=== PATIENT | male | born 1955 | race African-American/Black ===

== ENCOUNTER → 2016-07-21 | Outpatient (CLI) | payer OTHER ==
[~2016-07-21] MED LIST: ASPIR-LOW81 MG PO; ASPIR-LOX325 MG PO; COZAAR50 MG PO; EPI-PEN1 MG/ML MR; LISINOPRIL5 MG PO; METFORMIN; OXYCODONE HCL30 MG PO; PREDNISONE20 MG PO; TENORETIC PO
== END ==
LOC: BHSO 10:11
DX: F43.10 Post-traumatic stress disorder, unspecified (principal)
CPT/HCPCS: 90791-AI

== ENCOUNTER → 2016-11-30 | Outpatient (CLI) | payer OTHER ==
[~2016-11-30] VITALS: Ht 177.8 cm; Wt 126.6 kg
[~2016-11-30] MED LIST changes: +ASPIRIN 81M81 MG/TA2 PO; +CYMBALTA 30MG30 MG PO; +MOBIC15 MG PO; +ZOCOR 20MG20 MG PO
[2016-11-30 09:06] VITALS: BP 152/82; PULSE 114
[2016-11-30 09:54] VITALS: BP 128/65; PULSE 120
[2016-11-30 09:56] VITALS: BP 119/59; PULSE 115
[2016-11-30 09:57] VITALS: BP 122/64; PULSE 116
== END ==
LOC: COL.CARD 08:30
DX: R06.02 Shortness of breath (principal); I42.9 Cardiomyopathy, unspecified; E66.01 Morbid (severe) obesity due to excess calories; F41.0 Panic disorder [episodic paroxysmal anxiety]; E11.22 Type 2 diabetes mellitus with diabetic chronic kidney disease; G47.39 Other sleep apnea; E78.5 Hyperlipidemia, unspecified; F40.01 Agoraphobia with panic disorder; I12.9 Hypertensive chronic kidney disease with stage 1 through stage 4 chronic kidney disease, or unspecified chronic kidney disease; N18.9 Chronic kidney disease, unspecified; D64.9 Anemia, unspecified
CPT/HCPCS: A9502; J2785

== ENCOUNTER → 2016-12-07 | Outpatient (CLI) | payer OTHER | LOC: COL.PUL 09:40 | DX: R06.02 Shortness of breath (principal) ==

== ENCOUNTER → 2017-01-12 | Outpatient (CLI) | payer OTHER | LOC: BHSO 09:59 | DX: F43.10 Post-traumatic stress disorder, unspecified (principal) ==

== ENCOUNTER 2017-03-13 16:39 | Inpatient (IN) | payer OTHER ==
[2017-03-13] VITALS (66 sets, daily range): BP systolic 119–148; BP diastolic 66–83; PULSE 101–105; TEMP 97.8–99.2; O2SAT 91–100
[~2017-03-13] VITALS: Ht 177.8 cm; Wt 115.8 kg
[2017-03-13 17:41] LABS: ALANINE AMINOTRANSFERASE 26 U/L (21-72); ALBUMIN 4.5 gm/dL (3.5-5.0); ALKALINE PHOSPHATASE 120 U/L (50-136); ANION GAP 23 mmol/L (7-16); AST,SGOT 70 U/L (15-37); BILIRUBIN,TOTAL 1.6 mg/dL (0.0-1.0); BLOOD UREA NITROGEN 11 mg/dL (9-20); CALCIUM 9.3 mg/dL (8.4-10.2); CARBON DIOXIDE 17 mmol/L (22-30); CHLORIDE 98 mmol/L (98-107); CREATININE, serum 0.78 mg/dL (0.66-1.25); GLUCOSE 136 mg/dL (74-106); LIPASE 431 U/L (23-300); POTASSIUM 3.8 mmol/L (3.4-5.0); SODIUM 138 mmol/L (137-145); TOTAL PROTEIN 7.6 gm/dL (6.4-8.2)
[2017-03-13 17:55] LABS: TROPONIN-I < 0.012 ng/mL (0.000-0.034)
[2017-03-13 17:57] LABS: BASO # 0.1 (0.0-0.2); BASO % 0.4 % (0.0-2.0); EOS # 0.2 (0.0-0.7); EOS % 1.4 % (0-4.0); GRAN % 68.5 % (42.2-75.2); INR 1.3 (0.8-3.0); LYMPH # 2.2 (1.2-3.4); LYMPH % 18.6 % (20.0-51.0); MEAN CELL VOLUME 68 fl (80.0-100.0); MEAN CORPUSCULAR HGB CONC 32 g/dl (33.0-37.0); MONO # 1.1 (0.1-0.6); MONO % 9.7 % (1.7-9.3); PLATELET COUNT 248 K/mm3 (130-400); PROTHROMBIN TIME 15.3 SECONDS (9.7-12.8); REDCELL DISTRIBUTION WIDTH-CV 28.9 % (11.5-14.5)
[2017-03-13 18:00] LABS: PARTIAL THROMBOPLASTIN TIME 29.8 SECONDS (26.0-37.0)
[2017-03-13 18:17] LABS: HEMATOCRIT 18.9 % (42.0-52.0); MEAN CORPUSCULAR HEMOGLOBIN 22 pg (27.0-31.0)
[2017-03-13 18:19] LABS: RED BLOOD COUNT 2.79 M/mm3 (4.20-5.60)
[2017-03-13 23:21] LABS: COLLECTION METHOD CLEAN CATCH
[2017-03-13 23:31] LABS: MUCOUS Present /lpf; PH 5 (5-8); SQUAMOUS EPITHELIAL 0-2 /hpf; URINE APPEARANCE Hazy; URINE BACTERIA Rare /hpf; URINE BILIRUBIN Positive (NEGATIVE); URINE BLOOD Negative (NEGATIVE); URINE COLOR Amber; URINE GLUCOSE Negative (NEGATIVE); URINE KETONE Trace (NEGATIVE); URINE LEUKOCYTE ESTERASE Negative (NEGATIVE); URINE NITRATE Negative (NEGATIVE); URINE PROTEIN(semi-quant) 2+ (NEGATIVE); URINE RBC 0-2 /hpf; URINE UROBILINOGEN >=4.0 mg/dL (NEGATIVE)
[2017-03-14] VITALS (523 sets, daily range): BP systolic 126–143; BP diastolic 72–87; PULSE 91–102; TEMP 96.7–99.5; O2SAT 73–100
[2017-03-14 03:05] LABS: HEMATOCRIT 18.5 % (42.0-52.0); HEMOGLOBIN 6.2 g/dl (13.5-18.0)
[2017-03-14 08:41] LABS: MEAN CELL VOLUME 72 fl (80.0-100.0); MEAN CORPUSCULAR HGB CONC 33 g/dl (33.0-37.0); PLATELET COUNT 249 K/mm3 (130-400); RED BLOOD COUNT 3.03 M/mm3 (4.20-5.60); REDCELL DISTRIBUTION WIDTH-CV 31.3 % (11.5-14.5)
[2017-03-14 08:43] LABS: HEMATOCRIT 21.8 % (42.0-52.0); HEMOGLOBIN 7.1 g/dl (13.5-18.0); MEAN CORPUSCULAR HEMOGLOBIN 23 pg (27.0-31.0)
[2017-03-14 08:50] LABS: CHOLESTEROL 120 mg/dL (120-200); CHOLESTEROL RISK RATIO 4.2; HDL CHOLESTEROL 28 mg/dL; LDL CHOLESTEROL 74 mg/dL; TRIGLYCERIDE 91 mg/dL
[2017-03-14 08:51] LABS: CALCIUM 8.9 mg/dL (8.4-10.2); CREATININE, serum 0.72 mg/dL (0.66-1.25); POTASSIUM 3.9 mmol/L (3.4-5.0)
[2017-03-14 09:04] LABS: TROPONIN-I < 0.012 ng/mL (0.000-0.034)
[2017-03-14 09:21] LABS: BAND 1 % (0-10); LYMPHOCYTE 16 % (20.0-51.0); NEUTROPHILS 81 % (42.0-75.2)
[2017-03-14 09:22] LABS: PLATELET ESTIMATE NORMAL (NORMAL)
[2017-03-14 09:23] LABS: ANISOCYTOSIS 3+; POIKILOCYTOSIS 1+
[2017-03-14 09:24] LABS: HYPOCHROMIA 2+
[2017-03-14 09:25] LABS: MICROCYTOSIS 1+
[2017-03-14 12:27] LABS: ALBUMIN 3.6 gm/dL (3.5-5.0); TOTAL PROTEIN 6.5 gm/dL (6.4-8.2)
[2017-03-14 12:36] LABS: BILIRUBIN UNCONJUGATED 1.2 mg/dL (0.0-1.1); BILIRUBIN,DIRECT 0.8 mg/dL (0.0-0.4)
[2017-03-14 14:36] LABS: HEMATOCRIT 23.4 % (42.0-52.0); HEMOGLOBIN 7.6 g/dl (13.5-18.0)
[2017-03-14 20:40] LABS: HEMATOCRIT 21.8 % (42.0-52.0); HEMOGLOBIN 7.2 g/dl (13.5-18.0)
[2017-03-15] VITALS (119 sets, daily range): BP systolic 118–152; BP diastolic 64–80; PULSE 89–96; TEMP 97–98.9; O2SAT 90–100
[2017-03-15 02:12] LABS: HEMATOCRIT 22.5 % (42.0-52.0); HEMOGLOBIN 7.4 g/dl (13.5-18.0)
[2017-03-15 05:35] LABS: MEAN CELL VOLUME 73 fl (80.0-100.0); MEAN CORPUSCULAR HGB CONC 33 g/dl (33.0-37.0); PLATELET COUNT 207 K/mm3 (130-400); RED BLOOD COUNT 2.87 M/mm3 (4.20-5.60); REDCELL DISTRIBUTION WIDTH-CV 30.6 % (11.5-14.5)
[2017-03-15 05:51] LABS: ALBUMIN 3.4 gm/dL (3.5-5.0); BILIRUBIN,TOTAL 1.6 mg/dL (0.0-1.0); CALCIUM 8.5 mg/dL (8.4-10.2); CREATININE, serum 0.7 mg/dL (0.66-1.25); HEMATOCRIT 20.9 % (42.0-52.0); INR 1.3 (0.8-3.0); MAGNESIUM 1.1 mg/dL (1.6-2.3); MEAN CORPUSCULAR HEMOGLOBIN 24 pg (27.0-31.0); POTASSIUM 3.5 mmol/L (3.4-5.0); PROTHROMBIN TIME 15.5 SECONDS (9.7-12.8); TOTAL PROTEIN 6.3 gm/dL (6.4-8.2)
[2017-03-15 05:52] LABS: HEMOGLOBIN 6.9 g/dl (13.5-18.0)
[2017-03-15 06:24] LABS: ANISOCYTOSIS 4+; BAND 3 % (0-10); EOSINOPHIL 3 % (0-4); HYPOCHROMIA 3+; LYMPHOCYTE 14 % (20.0-51.0); NEUTROPHILS 71 % (42.0-75.2); PLATELET ESTIMATE NORMAL (NORMAL)
[2017-03-15 06:25] LABS: TARGET CELLS 1+; TEAR DROP CELLS 1+
[2017-03-15 10:08] LABS: HEMATOCRIT 20.4 % (42.0-52.0); HEMOGLOBIN 6.8 g/dl (13.5-18.0)
[2017-03-15 16:27] LABS: HEMATOCRIT 21.6 % (42.0-52.0)
[2017-03-16] VITALS (8 sets, daily range): BP systolic 130–152; BP diastolic 69–89; PULSE 84–95; TEMP 98–98.6
[2017-03-16 08:08] LABS: CALCIUM 8.9 mg/dL (8.4-10.2); CREATININE, serum 0.64 mg/dL (0.66-1.25); MAGNESIUM 1.8 mg/dL (1.6-2.3)
[2017-03-16 08:22] LABS: BASO % 0.3 % (0.0-2.0); EOS # 0.1 (0.0-0.7); EOS % 0.5 % (0-4.0); GRAN # 7.9 (1.4-6.5); GRAN % 75.9 % (42.2-75.2); LYMPH # 1.4 (1.2-3.4); LYMPH % 13.8 % (20.0-51.0); MEAN CELL VOLUME 73 fl (80.0-100.0); MEAN CORPUSCULAR HGB CONC 33 g/dl (33.0-37.0); MONO # 0.9 (0.1-0.6); MONO % 8.8 % (1.7-9.3); PLATELET COUNT 265 K/mm3 (130-400); RED BLOOD COUNT 2.84 M/mm3 (4.20-5.60); REDCELL DISTRIBUTION WIDTH-CV 31.5 % (11.5-14.5)
[2017-03-16 08:23] LABS: HEMATOCRIT 20.8 % (42.0-52.0); HEMOGLOBIN 6.8 g/dl (13.5-18.0); MEAN CORPUSCULAR HEMOGLOBIN 24 pg (27.0-31.0)
[2017-03-17 03:17] VITALS: BP 145/71; PULSE 85; TEMP 97.8
[2017-03-17 06:20] LABS: BASO % 0.3 % (0.0-2.0); EOS % 0.4 % (0-4.0); GRAN # 8.2 (1.4-6.5); GRAN % 72.7 % (42.2-75.2); LYMPH # 1.9 (1.2-3.4); LYMPH % 16.8 % (20.0-51.0); MEAN CELL VOLUME 75 fl (80.0-100.0); MEAN CORPUSCULAR HGB CONC 32 g/dl (33.0-37.0); PLATELET COUNT 302 K/mm3 (130-400); RED BLOOD COUNT 3.23 M/mm3 (4.20-5.60); REDCELL DISTRIBUTION WIDTH-CV 30.2 % (11.5-14.5)
[2017-03-17 06:23] LABS: HEMATOCRIT 24.2 % (42.0-52.0); HEMOGLOBIN 7.8 g/dl (13.5-18.0); MEAN CORPUSCULAR HEMOGLOBIN 24 pg (27.0-31.0)
[2017-03-17 06:35] LABS: CALCIUM 9.4 mg/dL (8.4-10.2); CREATININE, serum 0.66 mg/dL (0.66-1.25)
[2017-03-17] MEDS ORDERED: FERROUS SU325 MG/TAB PO (08:09)
[2017-03-17] MEDS ORDERED: PROTONIX 40MG T40 MG PO (08:10)
[2017-03-17 08:28] VITALS: BP 146/79; PULSE 90; TEMP 98.1
[2017-03-17 12:37] VITALS: BP 163/87; PULSE 95; TEMP 98.3
[2017-03-17 16:47] VITALS: BP 144/84; PULSE 93; TEMP 98.2
[2017-03-17 20:30] VITALS: BP 140/85; PULSE 89; TEMP 98
[2017-03-18] VITALS (12 sets, daily range): BP systolic 126–169; BP diastolic 68–88; PULSE 82–104; TEMP 97.7–98
[2017-03-18 06:39] LABS: BASO % 0.3 % (0.0-2.0); EOS # 0.1 (0.0-0.7); EOS % 0.8 % (0-4.0); GRAN # 7.1 (1.4-6.5); GRAN % 71.6 % (42.2-75.2); LYMPH # 1.7 (1.2-3.4); LYMPH % 17.5 % (20.0-51.0); MEAN CELL VOLUME 74 fl (80.0-100.0); MEAN CORPUSCULAR HGB CONC 33 g/dl (33.0-37.0); MONO # 0.9 (0.1-0.6); MONO % 8.9 % (1.7-9.3); PLATELET COUNT 292 K/mm3 (130-400); RED BLOOD COUNT 3.17 M/mm3 (4.20-5.60); REDCELL DISTRIBUTION WIDTH-CV 30.5 % (11.5-14.5)
[2017-03-18 06:45] LABS: CALCIUM 9.5 mg/dL (8.4-10.2); CREATININE, serum 0.59 mg/dL (0.66-1.25); POTASSIUM 3.8 mmol/L (3.4-5.0)
[2017-03-18 07:01] LABS: HEMATOCRIT 23.5 % (42.0-52.0); HEMOGLOBIN 7.7 g/dl (13.5-18.0); MEAN CORPUSCULAR HEMOGLOBIN 24 pg (27.0-31.0)
[2017-03-18] MEDS ORDERED: NORCO 325 MG-51 TAB PO (08:11)
[2017-03-19 00:01] VITALS: BP 150/71; PULSE 79; TEMP 98.4
[2017-03-19 03:21] VITALS: BP 128/50; PULSE 85; TEMP 98.2
[2017-03-19 07:53] LABS: BASO % 0.3 % (0.0-2.0); EOS # 0.1 (0.0-0.7); EOS % 0.8 % (0-4.0); GRAN # 8.4 (1.4-6.5); GRAN % 73.5 % (42.2-75.2); LYMPH # 1.7 (1.2-3.4); LYMPH % 14.9 % (20.0-51.0); MEAN CELL VOLUME 75 fl (80.0-100.0); MEAN CORPUSCULAR HGB CONC 33 g/dl (33.0-37.0); MONO # 1.1 (0.1-0.6); MONO % 9.6 % (1.7-9.3); PLATELET COUNT 304 K/mm3 (130-400)
[2017-03-19 08:02] LABS: CALCIUM 9.6 mg/dL (8.4-10.2); CREATININE, serum 0.59 mg/dL (0.66-1.25); POTASSIUM 3.6 mmol/L (3.4-5.0)
[2017-03-19 08:04] LABS: HEMATOCRIT 26.2 % (42.0-52.0); HEMOGLOBIN 8.7 g/dl (13.5-18.0); MEAN CORPUSCULAR HEMOGLOBIN 25 pg (27.0-31.0)
[2017-03-19 08:23] VITALS: BP 161/91; PULSE 84; TEMP 98.6
[2017-03-19 12:39] VITALS: BP 154/68; PULSE 92; TEMP 97.6
[2017-03-19 16:06] LABS: COLLECTION METHOD CLEAN CATCH
[2017-03-19 16:13] VITALS: BP 136/63; PULSE 79; TEMP 98.2
[2017-03-19 16:15] LABS: MUCOUS Present /lpf; PH 5 (5-8); SQUAMOUS EPITHELIAL None Seen /hpf; URINE APPEARANCE Turbid; URINE BACTERIA None Seen /hpf; URINE BILIRUBIN Negative (NEGATIVE); URINE BLOOD 1+ (NEGATIVE); URINE COLOR Amber; URINE GLUCOSE Negative (NEGATIVE); URINE KETONE Negative (NEGATIVE); URINE LEUKOCYTE ESTERASE Negative (NEGATIVE); URINE NITRATE Negative (NEGATIVE); URINE PROTEIN(semi-quant) 2+ (NEGATIVE); URINE UROBILINOGEN >=4.0 mg/dL (NEGATIVE)
[2017-03-19 20:14] VITALS: BP 158/79; PULSE 70; TEMP 97.9
[2017-03-20] VITALS (9 sets, daily range): BP systolic 136–180; BP diastolic 71–94; PULSE 70–115; TEMP 98.2–98.7
[2017-03-20 09:02] LABS: BASO % 0.3 % (0.0-2.0); EOS # 0.1 (0.0-0.7); EOS % 1.2 % (0-4.0); GRAN # 7.3 (1.4-6.5); GRAN % 71.3 % (42.2-75.2); LYMPH # 1.8 (1.2-3.4); LYMPH % 17.3 % (20.0-51.0); MEAN CELL VOLUME 75 fl (80.0-100.0); MEAN CORPUSCULAR HGB CONC 33 g/dl (33.0-37.0); MONO # 0.9 (0.1-0.6); MONO % 9.2 % (1.7-9.3); PLATELET COUNT 309 K/mm3 (130-400); RED BLOOD COUNT 3.68 M/mm3 (4.20-5.60); REDCELL DISTRIBUTION WIDTH-CV 28.6 % (11.5-14.5)
[2017-03-20 09:04] LABS: HEMATOCRIT 27.6 % (42.0-52.0); HEMOGLOBIN 9.2 g/dl (13.5-18.0); MEAN CORPUSCULAR HEMOGLOBIN 25 pg (27.0-31.0)
[2017-03-20 09:11] LABS: CALCIUM 9.7 mg/dL (8.4-10.2); CREATININE, serum 0.57 mg/dL (0.66-1.25); POTASSIUM 3.9 mmol/L (3.4-5.0)
[2017-03-21 00:34] VITALS: BP 182/90; PULSE 78; TEMP 97.9
[2017-03-21 04:07] VITALS: BP 156/84; PULSE 83; TEMP 97.7
[2017-03-21 07:01] LABS: BASO % 0.3 % (0.0-2.0); EOS # 0.1 (0.0-0.7); GRAN # 6.5 (1.4-6.5); LYMPH # 1.6 (1.2-3.4); LYMPH % 16.8 % (20.0-51.0); MEAN CELL VOLUME 75 fl (80.0-100.0); MEAN CORPUSCULAR HGB CONC 33 g/dl (33.0-37.0); MONO % 10.5 % (1.7-9.3); PLATELET COUNT 280 K/mm3 (130-400); RED BLOOD COUNT 3.62 M/mm3 (4.20-5.60)
[2017-03-21 07:15] LABS: CALCIUM 9.5 mg/dL (8.4-10.2); CREATININE, serum 0.55 mg/dL (0.66-1.25); POTASSIUM 3.8 mmol/L (3.4-5.0)
[2017-03-21 07:41] LABS: HEMATOCRIT 27.3 % (42.0-52.0); HEMOGLOBIN 8.9 g/dl (13.5-18.0); MEAN CORPUSCULAR HEMOGLOBIN 25 pg (27.0-31.0); REDCELL DISTRIBUTION WIDTH-CV 28.7 % (11.5-14.5)
[2017-03-21 08:05] VITALS: BP 171/88; PULSE 83; TEMP 98.5
[2017-03-21 11:57] VITALS: BP 144/57; PULSE 79; TEMP 98.4
[2017-03-21 15:56] VITALS: BP 148/73; PULSE 95; TEMP 98
[2017-03-21 20:25] VITALS: BP 165/77; PULSE 81; TEMP 97.8
[2017-03-22 00:20] VITALS: BP 161/100; PULSE 80; TEMP 98.4
[2017-03-22 04:32] VITALS: BP 168/84; PULSE 77; TEMP 97.9
[2017-03-22 06:49] LABS: BASO % 0.3 % (0.0-2.0); EOS # 0.1 (0.0-0.7); EOS % 1.2 % (0-4.0); GRAN # 6.3 (1.4-6.5); GRAN % 71.3 % (42.2-75.2); LYMPH # 1.5 (1.2-3.4); LYMPH % 17.2 % (20.0-51.0); MEAN CELL VOLUME 75 fl (80.0-100.0); MEAN CORPUSCULAR HGB CONC 33 g/dl (33.0-37.0); MONO # 0.9 (0.1-0.6); MONO % 9.7 % (1.7-9.3); PLATELET COUNT 306 K/mm3 (130-400); RED BLOOD COUNT 3.66 M/mm3 (4.20-5.60); REDCELL DISTRIBUTION WIDTH-CV 28.8 % (11.5-14.5)
[2017-03-22 06:52] LABS: HEMATOCRIT 27.3 % (42.0-52.0); HEMOGLOBIN 8.9 g/dl (13.5-18.0); MEAN CORPUSCULAR HEMOGLOBIN 24 pg (27.0-31.0)
[2017-03-22 07:16] LABS: CALCIUM 9.6 mg/dL (8.4-10.2); CREATININE, serum 0.55 mg/dL (0.66-1.25); POTASSIUM 3.9 mmol/L (3.4-5.0)
[2017-03-22] MEDS ORDERED: MIRALAX PA17 GM/Dose PO (07:50)
[2017-03-22] MEDS ORDERED: SENOKOT S 50 MG1 TAB PO (07:50)
[2017-03-22] MEDS ORDERED: LIDODERM 5% PATC1 EA TP (07:51)
[2017-03-22] MEDS ORDERED: COZAAR100 MG PO (07:56)
[2017-03-22 08:22] VITALS: BP 160/85; PULSE 85; TEMP 98.4
[2017-03-22 12:47] VITALS: BP 165/91; PULSE 87; TEMP 98.2
[2017-03-22 15:58] VITALS: BP 161/92; PULSE 87; TEMP 98.1
[2017-03-22 21:48] VITALS: BP 153/91; PULSE 89; TEMP 98.9
[2017-03-23 01:18] VITALS: BP 173/88; PULSE 84; TEMP 98.5
[2017-03-23 04:30] VITALS: BP 157/87; PULSE 85; TEMP 98.6
[2017-03-23 06:58] LABS: BASO % 0.4 % (0.0-2.0); EOS # 0.1 (0.0-0.7); EOS % 1.3 % (0-4.0); GRAN # 6.3 (1.4-6.5); GRAN % 70.1 % (42.2-75.2); LYMPH # 1.7 (1.2-3.4); LYMPH % 18.7 % (20.0-51.0); MEAN CELL VOLUME 74 fl (80.0-100.0); MEAN CORPUSCULAR HGB CONC 33 g/dl (33.0-37.0); MONO # 0.8 (0.1-0.6); MONO % 9.2 % (1.7-9.3); PLATELET COUNT 285 K/mm3 (130-400); RED BLOOD COUNT 3.62 M/mm3 (4.20-5.60); REDCELL DISTRIBUTION WIDTH-CV 28.3 % (11.5-14.5)
[2017-03-23 07:06] LABS: HEMATOCRIT 26.8 % (42.0-52.0); HEMOGLOBIN 8.8 g/dl (13.5-18.0); MEAN CORPUSCULAR HEMOGLOBIN 24 pg (27.0-31.0)
[2017-03-23 07:14] LABS: CALCIUM 9.6 mg/dL (8.4-10.2); CREATININE, serum 0.56 mg/dL (0.66-1.25); POTASSIUM 3.9 mmol/L (3.4-5.0)
[2017-03-23 08:02] VITALS: BP 161/76; PULSE 89; TEMP 98.1
[2017-03-23 11:58] VITALS: BP 143/86; PULSE 99; TEMP 98.2
[2017-03-23 16:43] VITALS: BP 182/97; PULSE 80; TEMP 98.7
[2017-03-23 20:43] VITALS: BP 187/101; PULSE 82; TEMP 98
[2017-03-24 00:27] VITALS: BP 186/93; PULSE 78; TEMP 98
[2017-03-24 05:00] VITALS: BP 184/98; PULSE 107; TEMP 98
[2017-03-24 06:51] LABS: BASO % 0.4 % (0.0-2.0); EOS # 0.1 (0.0-0.7); EOS % 1.2 % (0-4.0); GRAN # 6.6 (1.4-6.5); GRAN % 72.5 % (42.2-75.2); LYMPH # 1.5 (1.2-3.4); LYMPH % 16.8 % (20.0-51.0); MEAN CELL VOLUME 74 fl (80.0-100.0); MEAN CORPUSCULAR HGB CONC 33 g/dl (33.0-37.0); MONO # 0.8 (0.1-0.6); MONO % 8.7 % (1.7-9.3); PLATELET COUNT 287 K/mm3 (130-400); RED BLOOD COUNT 3.81 M/mm3 (4.20-5.60); REDCELL DISTRIBUTION WIDTH-CV 27.6 % (11.5-14.5)
[2017-03-24 06:58] LABS: CALCIUM 9.7 mg/dL (8.4-10.2); CREATININE, serum 0.5 mg/dL (0.66-1.25); POTASSIUM 3.9 mmol/L (3.4-5.0)
[2017-03-24 07:01] LABS: HEMOGLOBIN 9.3 g/dl (13.5-18.0); MEAN CORPUSCULAR HEMOGLOBIN 24 pg (27.0-31.0)
[2017-03-24 08:13] VITALS: BP 163/85; PULSE 84; TEMP 98.2
[2017-03-24 11:35] VITALS: BP 145/69; PULSE 87; TEMP 98
[2017-03-24 15:58] VITALS: BP 140/73; PULSE 87; TEMP 98.7
[2017-03-24 20:18] VITALS: BP 130/72; PULSE 83; TEMP 97.6
[2017-03-25] VITALS (7 sets, daily range): BP systolic 143–177; BP diastolic 79–88; PULSE 73–80; TEMP 97.8–98.7
[2017-03-25 07:29] LABS: BASO # 0.1 (0.0-0.2); BASO % 0.6 % (0.0-2.0); EOS # 0.1 (0.0-0.7); EOS % 1.6 % (0-4.0); GRAN # 5.7 (1.4-6.5); GRAN % 65.4 % (42.2-75.2); LYMPH # 1.9 (1.2-3.4); LYMPH % 22.4 % (20.0-51.0); MEAN CELL VOLUME 74 fl (80.0-100.0); MEAN CORPUSCULAR HGB CONC 33 g/dl (33.0-37.0); MONO # 0.8 (0.1-0.6); MONO % 9.5 % (1.7-9.3); PLATELET COUNT 260 K/mm3 (130-400); RED BLOOD COUNT 3.78 M/mm3 (4.20-5.60); REDCELL DISTRIBUTION WIDTH-CV 27.5 % (11.5-14.5)
[2017-03-25 07:31] LABS: HEMATOCRIT 27.8 % (42.0-52.0); HEMOGLOBIN 9.1 g/dl (13.5-18.0); MEAN CORPUSCULAR HEMOGLOBIN 24 pg (27.0-31.0)
[2017-03-25 07:46] LABS: CALCIUM 9.5 mg/dL (8.4-10.2); CREATININE, serum 0.55 mg/dL (0.66-1.25); POTASSIUM 3.8 mmol/L (3.4-5.0)
[2017-03-26 04:46] VITALS: BP 100/63; PULSE 50; TEMP 98.1
[2017-03-26 06:54] LABS: BASO # 0.1 (0.0-0.2); BASO % 0.6 % (0.0-2.0); EOS # 0.1 (0.0-0.7); EOS % 1.6 % (0-4.0); GRAN # 5.8 (1.4-6.5); GRAN % 66.2 % (42.2-75.2); LYMPH # 1.9 (1.2-3.4); LYMPH % 21.7 % (20.0-51.0); MEAN CELL VOLUME 73 fl (80.0-100.0); MEAN CORPUSCULAR HGB CONC 34 g/dl (33.0-37.0); MONO # 0.8 (0.1-0.6); MONO % 9.6 % (1.7-9.3); PLATELET COUNT 265 K/mm3 (130-400); RED BLOOD COUNT 3.88 M/mm3 (4.20-5.60); REDCELL DISTRIBUTION WIDTH-CV 27.1 % (11.5-14.5)
[2017-03-26 06:56] LABS: HEMATOCRIT 28.3 % (42.0-52.0); HEMOGLOBIN 9.5 g/dl (13.5-18.0); MEAN CORPUSCULAR HEMOGLOBIN 24 pg (27.0-31.0)
[2017-03-26 08:08] VITALS: BP 175/94; PULSE 74; TEMP 98.6
[2017-03-26 11:34] VITALS: BP 155/80; PULSE 77; TEMP 97.9
[2017-03-26 15:31] VITALS: BP 151/80; PULSE 85; TEMP 97.5
[2017-03-26 20:41] VITALS: BP 138/88; PULSE 73; TEMP 97.9
[2017-03-26 23:58] VITALS: BP 158/85; PULSE 70; TEMP 98.3
[2017-03-27] VITALS (7 sets, daily range): BP systolic 127–171; BP diastolic 66–91; PULSE 72–85; TEMP 97.5–98.4
[2017-03-27] MEDS ORDERED: COREG 6.256.25 MG/TA PO (20:45)
[2017-03-28 01:08] VITALS: BP 155/86; PULSE 74; TEMP 97.7
[2017-03-28 04:40] VITALS: BP 164/87; PULSE 78; TEMP 97.3
[2017-03-28 06:43] LABS: BASO # 0.1 (0.0-0.2); BASO % 0.6 % (0.0-2.0); EOS # 0.1 (0.0-0.7); EOS % 1.4 % (0-4.0); GRAN # 7.1 (1.4-6.5); GRAN % 68.8 % (42.2-75.2); LYMPH % 19.1 % (20.0-51.0); MEAN CELL VOLUME 73 fl (80.0-100.0); MEAN CORPUSCULAR HGB CONC 33 g/dl (33.0-37.0); MONO % 9.6 % (1.7-9.3); PLATELET COUNT 293 K/mm3 (130-400); RED BLOOD COUNT 4.08 M/mm3 (4.20-5.60); REDCELL DISTRIBUTION WIDTH-CV 26.5 % (11.5-14.5)
[2017-03-28 06:46] LABS: HEMATOCRIT 29.9 % (42.0-52.0); HEMOGLOBIN 9.9 g/dl (13.5-18.0); MEAN CORPUSCULAR HEMOGLOBIN 24 pg (27.0-31.0)
[2017-03-28 06:52] LABS: CALCIUM 9.7 mg/dL (8.4-10.2); CREATININE, serum 0.55 mg/dL (0.66-1.25); POTASSIUM 3.8 mmol/L (3.4-5.0)
[2017-03-28 08:06] VITALS: BP 139/81; PULSE 86; TEMP 98.4
[2017-03-28 09:25] VITALS: BP 139/81; PULSE 86; TEMP 98.4
[2017-03-28 12:30] VITALS: BP 154/96; PULSE 82; TEMP 98
== END 2017-03-28 14:00 | DRG 392 ==
LOC: COL.ER 16:39 → ICU 19:30 → MEDICAL 03-15 12:09
PROVIDERS: Emergency Medicine; Family Medicine; Internal Medicine; Internal Medicine Gastroenterology; Nurse Practitioner; Nurse Practitioner Family; Physician Assistant
PROC: 0DB98ZX Excision of Duodenum, Via Natural or Artificial Opening Endoscopic, Diagnostic (ICD-10-PCS; principal; 2017-03-15 07:30)
PROC: 0DJD8ZZ Inspection of Lower Intestinal Tract, Via Natural or Artificial Opening Endoscopic (ICD-10-PCS; 2017-03-15 07:30)
DX: K21.0 Gastro-esophageal reflux disease with esophagitis (principal); K92.2 Gastrointestinal hemorrhage, unspecified; D62 Acute posthemorrhagic anemia; K22.8 Other specified diseases of esophagus; I10 Essential (primary) hypertension; E78.5 Hyperlipidemia, unspecified; E11.9 Type 2 diabetes mellitus without complications; M10.9 Gout, unspecified; R55 Syncope and collapse; G47.33 Obstructive sleep apnea (adult) (pediatric); K64.0 First degree hemorrhoids; D58.2 Other hemoglobinopathies; F10.10 Alcohol abuse, uncomplicated; K57.30 Diverticulosis of large intestine without perforation or abscess without bleeding; M54.5 Low back pain; Z80.0 Family history of malignant neoplasm of digestive organs; Z91.81 History of falling
CPT/HCPCS: 99223-AI; 99231-AI; 99232-AI; 99233-AI; 99239; C9113; J2250; J3010; J3475; J7030; J7512; P9016

== ENCOUNTER → 2017-09-05 | Outpatient (CLI) | payer OTHER ==
[~2017-09-05] MED LIST changes: +COREG 6.256.25 MG/TA PO; +COZAAR100 MG PO; +FERROUS SU325 MG/TAB PO; +LIDODERM 5% PATC1 EA TP; +MIRALAX PA17 GM/Dose PO; +NORCO 325 MG-51 TAB PO; +PROTONIX 40MG T40 MG PO; +SENOKOT S 50 MG1 TAB PO
== END ==
LOC: BHSO 13:12
DX: F43.10 Post-traumatic stress disorder, unspecified (principal)
CPT/HCPCS: G0463

== ENCOUNTER → 2017-12-22 | Outpatient (CLI) | payer OTHER | LOC: BHSO 11:30 | DX: F43.10 Post-traumatic stress disorder, unspecified (principal) | CPT/HCPCS: G0463 ==

== ENCOUNTER 2018-01-19 16:44 | Inpatient (IN) | payer OTHER ==
[~2018-01-19] VITALS: Ht 177.8 cm; Wt 116.8 kg
[2018-01-19] VITALS (7 sets, daily range): BP systolic 109–136; BP diastolic 54–72; PULSE 96–104; TEMP 98.6–99.2
[2018-01-19] MEDS ORDERED: ASPIRIN 81M81 MG/TA2 PO (17:10)
[2018-01-19] MEDS ORDERED: 00186-0372-20 IH (17:10)
[2018-01-19] MEDS ORDERED: FOLIC ACID 11 MG/TA1 PO (17:11)
[2018-01-19] MEDS ORDERED: D3-5050000 IU PO (17:11)
[2018-01-19] MEDS ORDERED: FERROUSAL325 MG PO (17:11)
[2018-01-19] MEDS ORDERED: NEURONTIN300 MG/CAP PO (17:12)
[2018-01-19 17:13] LABS: BASO % 0.3 % (0.0-2.0); EOS # 0.3 (0.0-0.7); EOS % 1.9 % (0-4.0); GRAN # 10.8 (1.4-6.5); GRAN % 71.4 % (42.2-75.2); LYMPH # 2.4 (1.2-3.4); LYMPH % 15.7 % (20.0-51.0); MEAN CELL VOLUME 74 fl (80.0-100.0); MEAN CORPUSCULAR HGB CONC 35 g/dl (33.0-37.0); MEAN PLATELET VOLUME 9.4 fl (7.4-10.4); MONO # 1.4 (0.1-0.6); MONO % 9.5 % (1.7-9.3); PLATELET COUNT 230 K/mm3 (130-400); RED BLOOD COUNT 2.14 M/mm3 (4.20-5.60)
[2018-01-19] MEDS ORDERED: ATARAX50 MG PO (17:13)
[2018-01-19] MEDS ORDERED: HCTZ 25MG TAB25 MG PO (17:13)
[2018-01-19 17:15] LABS: HEMATOCRIT 15.8 % (42.0-52.0); HEMOGLOBIN 5.5 g/dl (13.5-18.0); MEAN CORPUSCULAR HEMOGLOBIN 26 pg (27.0-31.0)
[2018-01-19 17:20] LABS: INR 1.3 (0.8-3.0); PROTHROMBIN TIME 14.5 SECONDS (9.7-12.8)
[2018-01-19 17:23] LABS: PARTIAL THROMBOPLASTIN TIME 28.6 SECONDS (26.0-37.0)
[2018-01-19 17:28] LABS: ALANINE AMINOTRANSFERASE 27 U/L (21-72); ALKALINE PHOSPHATASE 139 U/L (50-136); ANION GAP 16 mmol/L (7-16); AST,SGOT 70 U/L (15-37); BLOOD UREA NITROGEN 25 mg/dL (9-20); CALCIUM 9.2 mg/dL (8.4-10.2); CARBON DIOXIDE 22 mmol/L (22-30); CHLORIDE 101 mmol/L (98-107); GLUCOSE 126 mg/dL (74-106); POTASSIUM 3.5 mmol/L (3.4-5.0); SODIUM 139 mmol/L (137-145); TOTAL PROTEIN 7.2 gm/dL (6.4-8.2)
[2018-01-19 17:35] LABS: ALCOHOL(ethanol),MEDICAL 14 mg/dL
[2018-01-19 17:42] LABS: LIPASE 604 U/L (23-300)
[2018-01-19 17:43] LABS: TROPONIN-I < 0.012 ng/mL (0.000-0.034)
[2018-01-19] MEDS ORDERED: ZOCOR 40MG40 MG PO (18:17)
[2018-01-19] MEDS ORDERED: COZAAR100 MG PO (18:19)
[2018-01-19] MEDS ORDERED: VIAGRA100 M1 (18:20)
[2018-01-19 23:34] LABS: COLLECTION METHOD CLEAN CATCH
[2018-01-19 23:53] LABS: TRICYCLIC ANTIDEPRESS URINE NEGATIVE
[2018-01-19 23:58] LABS: AMORPHOUS CRYSTAL Present /uL; MUCOUS Present /lpf; PH 5 (5-8); URINE APPEARANCE Cloudy; URINE BACTERIA Rare /hpf; URINE BILIRUBIN Positive (NEGATIVE); URINE BLOOD 1+ (NEGATIVE); URINE COLOR Amber; URINE GLUCOSE 1+ (NEGATIVE); URINE KETONE Negative (NEGATIVE); URINE LEUKOCYTE ESTERASE Trace (NEGATIVE); URINE NITRATE Negative (NEGATIVE); URINE PROTEIN(semi-quant) 2+ (NEGATIVE); URINE UROBILINOGEN >=4.0 mg/dL (NEGATIVE); URINE WBC 20-50 /hpf
[2018-01-20] VITALS (12 sets, daily range): BP systolic 102–139; BP diastolic 45–73; PULSE 93–111; TEMP 97.9–99.2
[2018-01-20 02:05] LABS: HEMATOCRIT 19.7 % (42.0-52.0); HEMOGLOBIN 6.9 g/dl (13.5-18.0)
[2018-01-20 02:29] LABS: CREATININE, serum 3.69 mg/dL (0.66-1.25)
[2018-01-20 02:30] LABS: FRACTIONAL EXCRETION OF NA+ 0.6 %
[2018-01-20 02:53] LABS: COLLECTION METHOD CATHETER
[2018-01-20 03:06] LABS: MUCOUS Present /lpf; PH 5 (5-8); SQUAMOUS EPITHELIAL 0-2 /hpf; URINE APPEARANCE Cloudy; URINE BACTERIA None Seen /hpf; URINE BILIRUBIN Positive (NEGATIVE); URINE BLOOD 1+ (NEGATIVE); URINE COLOR Amber; URINE GLUCOSE 1+ (NEGATIVE); URINE KETONE Negative (NEGATIVE); URINE LEUKOCYTE ESTERASE Negative (NEGATIVE); URINE NITRATE Negative (NEGATIVE); URINE PROTEIN(semi-quant) 2+ (NEGATIVE); URINE UROBILINOGEN >=4.0 mg/dL (NEGATIVE)
[2018-01-20 11:04] LABS: BASO % 0.3 % (0.0-2.0); EOS # 0.2 (0.0-0.7); EOS % 1.7 % (0-4.0); GRAN % 72.1 % (42.2-75.2); LYMPH # 2.1 (1.2-3.4); LYMPH % 14.9 % (20.0-51.0); MEAN CELL VOLUME 76 fl (80.0-100.0); MEAN CORPUSCULAR HGB CONC 35 g/dl (33.0-37.0); MEAN PLATELET VOLUME 9.7 fl (7.4-10.4); MONO # 1.4 (0.1-0.6); MONO % 10.1 % (1.7-9.3); PLATELET COUNT 173 K/mm3 (130-400); RED BLOOD COUNT 2.67 M/mm3 (4.20-5.60); REDCELL DISTRIBUTION WIDTH-CV 19.7 % (11.5-14.5)
[2018-01-20 11:05] LABS: HEMATOCRIT 20.4 % (42.0-52.0); HEMOGLOBIN 7.1 g/dl (13.5-18.0); MEAN CORPUSCULAR HEMOGLOBIN 27 pg (27.0-31.0)
[2018-01-20 11:15] LABS: ALBUMIN 3.1 gm/dL (3.5-5.0); BILIRUBIN,TOTAL 2.8 mg/dL (0.0-1.0); CALCIUM 8.2 mg/dL (8.4-10.2); CHOLESTEROL RISK RATIO 6.3; POTASSIUM 3.5 mmol/L (3.4-5.0); TOTAL PROTEIN 5.9 gm/dL (6.4-8.2)
[2018-01-20 11:21] LABS: CREATININE, serum 3.91 mg/dL (0.66-1.25)
[2018-01-20 12:48] LABS: RETIC # 0.05 M/mm3 (0.02-0.16); RETIC % 1.8 % (0.5-3.52)
[2018-01-20 12:58] LABS: CREATINE KINASE 27 U/L (55-170); LACTATE DEHYDROGENASE 520 U/L (313-618)
[2018-01-20 15:20] LABS: HEMATOCRIT 20.2 % (42.0-52.0); HEMOGLOBIN 7.3 g/dl (13.5-18.0)
[2018-01-20 18:22] LABS: HEMOGLOBIN 7.9 g/dl (13.5-18.0)
[2018-01-20 22:21] LABS: HEMATOCRIT 19.1 % (42.0-52.0); HEMOGLOBIN 6.8 g/dl (13.5-18.0)
[2018-01-20 23:44] LABS: COMPLEMENT-C3 134 mg/dL (79-152); COMPLEMENT-C4 30 mg/dL (18-55)
[2018-01-21] VITALS (15 sets, daily range): BP systolic 91–164; BP diastolic 51–122; PULSE 89–131; TEMP 98.1–103.1
[2018-01-21 01:05] LABS: URINE PROTEIN:CREAT RATIO 0.96 (0.00-0.14)
[2018-01-21 07:42] LABS: BASO % 0.3 % (0.0-2.0); EOS # 0.3 (0.0-0.7); EOS % 2.2 % (0-4.0); GRAN % 71.1 % (42.2-75.2); LYMPH # 1.6 (1.2-3.4); LYMPH % 14.4 % (20.0-51.0); MEAN CELL VOLUME 78 fl (80.0-100.0); MEAN CORPUSCULAR HGB CONC 35 g/dl (33.0-37.0); MEAN PLATELET VOLUME 10.1 fl (7.4-10.4); MONO # 1.2 (0.1-0.6); MONO % 10.8 % (1.7-9.3); PLATELET COUNT 149 K/mm3 (130-400); RED BLOOD COUNT 2.75 M/mm3 (4.20-5.60)
[2018-01-21 07:50] LABS: HEMATOCRIT 21.4 % (42.0-52.0); HEMOGLOBIN 7.4 g/dl (13.5-18.0); MEAN CORPUSCULAR HEMOGLOBIN 27 pg (27.0-31.0)
[2018-01-21 07:51] LABS: BILIRUBIN,TOTAL 2.8 mg/dL (0.0-1.0); CALCIUM 8.1 mg/dL (8.4-10.2); MAGNESIUM 1.4 mg/dL (1.6-2.3); POTASSIUM 3.3 mmol/L (3.4-5.0); TOTAL PROTEIN 5.9 gm/dL (6.4-8.2)
[2018-01-21 07:56] LABS: CREATININE, serum 4.05 mg/dL (0.66-1.25)
[2018-01-21 18:56] LABS: BASO % 0.2 % (0.0-2.0); EOS # 0.2 (0.0-0.7); EOS % 1.6 % (0-4.0); GRAN # 9.6 (1.4-6.5); GRAN % 77.5 % (42.2-75.2); LYMPH # 1.4 (1.2-3.4); LYMPH % 11.7 % (20.0-51.0); MEAN CELL VOLUME 79 fl (80.0-100.0); MEAN CORPUSCULAR HGB CONC 34 g/dl (33.0-37.0); MEAN PLATELET VOLUME 9.8 fl (7.4-10.4); MONO % 8.2 % (1.7-9.3); PLATELET COUNT 201 K/mm3 (130-400); RED BLOOD COUNT 3.24 M/mm3 (4.20-5.60); REDCELL DISTRIBUTION WIDTH-CV 20.1 % (11.5-14.5)
[2018-01-21 19:01] LABS: HEMATOCRIT 25.6 % (42.0-52.0); HEMOGLOBIN 8.7 g/dl (13.5-18.0); MEAN CORPUSCULAR HEMOGLOBIN 27 pg (27.0-31.0)
[2018-01-21 19:07] LABS: ALBUMIN 3.7 gm/dL (3.5-5.0); BILIRUBIN,TOTAL 3.3 mg/dL (0.0-1.0); CALCIUM 8.9 mg/dL (8.4-10.2); MAGNESIUM 1.6 mg/dL (1.6-2.3); PHOSPHOROUS 2.4 mg/dL (2.5-4.5); TOTAL PROTEIN 6.8 gm/dL (6.4-8.2)
[2018-01-21 19:18] LABS: CREATININE, serum 4.08 mg/dL (0.66-1.25)
[2018-01-21 19:26] LABS: ERYTHROCYTE SEDIMENTATION RATE 16 mm/hr (0-30)
[2018-01-21 21:27] LABS: COLLECTION METHOD CATHETER
[2018-01-21 21:43] LABS: HYALINE CAST >12 /lpf; MUCOUS Present /lpf; PH 6 (5-8); SQUAMOUS EPITHELIAL 0-2 /hpf; URINE APPEARANCE Clear; URINE BACTERIA None Seen /hpf; URINE BILIRUBIN Negative (NEGATIVE); URINE BLOOD 2+ (NEGATIVE); URINE COLOR Yellow; URINE GLUCOSE Negative (NEGATIVE); URINE KETONE Negative (NEGATIVE); URINE LEUKOCYTE ESTERASE 1+ (NEGATIVE); URINE NITRATE Negative (NEGATIVE); URINE PROTEIN(semi-quant) 1+ (NEGATIVE); URINE RBC >50 /hpf; URINE UROBILINOGEN >=4.0 mg/dL (NEGATIVE)
[2018-01-22] VITALS (8 sets, daily range): BP systolic 106–128; BP diastolic 57–81; PULSE 98–117; TEMP 98.7–100.2
[2018-01-22 08:23] LABS: MAGNESIUM 1.8 mg/dL (1.6-2.3)
[2018-01-22 08:56] LABS: MEAN CELL VOLUME 79 fl (80.0-100.0); MEAN CORPUSCULAR HGB CONC 34 g/dl (33.0-37.0); MEAN PLATELET VOLUME 11.2 fl (7.4-10.4); PLATELET COUNT 198 K/mm3 (130-400); RED BLOOD COUNT 3.02 M/mm3 (4.20-5.60); REDCELL DISTRIBUTION WIDTH-CV 21.5 % (11.5-14.5)
[2018-01-22 09:02] LABS: ALBUMIN 3.5 gm/dL (3.5-5.0); BILIRUBIN,TOTAL 3.5 mg/dL (0.0-1.0); CALCIUM 8.9 mg/dL (8.4-10.2); CREATININE, serum 3.57 mg/dL (0.66-1.25); POTASSIUM 4.1 mmol/L (3.4-5.0); TOTAL PROTEIN 6.6 gm/dL (6.4-8.2)
[2018-01-22 09:04] LABS: HEMATOCRIT 23.9 % (42.0-52.0); HEMOGLOBIN 8.2 g/dl (13.5-18.0); MEAN CORPUSCULAR HEMOGLOBIN 27 pg (27.0-31.0)
[2018-01-22 10:08] LABS: BAND 20 % (0-10); EOSINOPHIL 1 % (0-4); LYMPHOCYTE 14 % (20.0-51.0); MICROCYTOSIS 1+; NEUTROPHILS 55 % (42.0-75.2); PLATELET ESTIMATE NORMAL (NORMAL)
[2018-01-22 10:09] LABS: ANISOCYTOSIS 2+
[2018-01-23] VITALS (8 sets, daily range): BP systolic 97–130; BP diastolic 57–80; PULSE 92–113; TEMP 97.9–99.1
[2018-01-23 10:37] LABS: BASO % 0.2 % (0.0-2.0); EOS # 0.2 (0.0-0.7); EOS % 1.6 % (0-4.0); GRAN # 10.5 (1.4-6.5); GRAN % 77.5 % (42.2-75.2); LYMPH # 1.4 (1.2-3.4); LYMPH % 10.4 % (20.0-51.0); MEAN CELL VOLUME 80 fl (80.0-100.0); MEAN CORPUSCULAR HGB CONC 34 g/dl (33.0-37.0); MONO # 1.3 (0.1-0.6); MONO % 9.8 % (1.7-9.3); PLATELET COUNT 167 K/mm3 (130-400); RED BLOOD COUNT 2.71 M/mm3 (4.20-5.60); REDCELL DISTRIBUTION WIDTH-CV 21.5 % (11.5-14.5)
[2018-01-23 10:38] LABS: HEMATOCRIT 21.7 % (42.0-52.0); HEMOGLOBIN 7.3 g/dl (13.5-18.0); MEAN CORPUSCULAR HEMOGLOBIN 27 pg (27.0-31.0)
[2018-01-23 10:44] LABS: ALBUMIN 3.1 gm/dL (3.5-5.0); BILIRUBIN,TOTAL 2.7 mg/dL (0.0-1.0); CALCIUM 9.3 mg/dL (8.4-10.2); CREATININE, serum 2.03 mg/dL (0.66-1.25); POTASSIUM 3.4 mmol/L (3.4-5.0); TOTAL PROTEIN 6.1 gm/dL (6.4-8.2)
[2018-01-23 10:46] LABS: INR 1.4 (0.8-3.0); PROTHROMBIN TIME 16.2 SECONDS (9.7-12.8)
[2018-01-23 12:22] LABS: COLLECTION METHOD CATHETER
[2018-01-23 12:43] LABS: MUCOUS Present /lpf; PH 5 (5-8); SQUAMOUS EPITHELIAL 0-2 /hpf; URINE APPEARANCE Cloudy; URINE BACTERIA Rare /hpf; URINE BILIRUBIN Negative (NEGATIVE); URINE BLOOD 3+ (NEGATIVE); URINE COLOR Amber; URINE GLUCOSE Negative (NEGATIVE); URINE KETONE Negative (NEGATIVE); URINE LEUKOCYTE ESTERASE 2+ (NEGATIVE); URINE NITRATE Negative (NEGATIVE); URINE PROTEIN(semi-quant) 2+ (NEGATIVE); URINE RBC >50 /hpf; URINE UROBILINOGEN >=4.0 mg/dL (NEGATIVE)
[2018-01-23] MEDS ORDERED: VITAMIN D 1001000 IU PO (13:24)
[2018-01-23 13:45] LABS: BILIRUBIN UNCONJUGATED 0.8 mg/dL (0.0-1.1); BILIRUBIN,DIRECT 1.8 mg/dL (0.0-0.4); BILIRUBIN,TOTAL 2.6 mg/dL (0.0-1.0); TOTAL PROTEIN 6.1 gm/dL (6.4-8.2)
[2018-01-24] VITALS (8 sets, daily range): BP systolic 108–142; BP diastolic 51–77; PULSE 73–109; TEMP 98.2–99.7
[2018-01-24 06:11] LABS: BASO % 0.1 % (0.0-2.0); EOS # 0.2 (0.0-0.7); EOS % 1.8 % (0-4.0); GRAN # 9.6 (1.4-6.5); GRAN % 77.9 % (42.2-75.2); LYMPH # 1.2 (1.2-3.4); LYMPH % 9.4 % (20.0-51.0); MEAN CELL VOLUME 79 fl (80.0-100.0); MEAN CORPUSCULAR HGB CONC 34 g/dl (33.0-37.0); MEAN PLATELET VOLUME 9.8 fl (7.4-10.4); MONO # 1.2 (0.1-0.6); PLATELET COUNT 154 K/mm3 (130-400); RED BLOOD COUNT 2.56 M/mm3 (4.20-5.60); REDCELL DISTRIBUTION WIDTH-CV 21.7 % (11.5-14.5)
[2018-01-24 06:18] LABS: HEMATOCRIT 20.3 % (42.0-52.0); HEMOGLOBIN 6.9 g/dl (13.5-18.0); MEAN CORPUSCULAR HEMOGLOBIN 27 pg (27.0-31.0)
[2018-01-24 06:19] LABS: BILIRUBIN,TOTAL 2.1 mg/dL (0.0-1.0); CALCIUM 9.3 mg/dL (8.4-10.2); CREATININE, serum 1.39 mg/dL (0.66-1.25); MAGNESIUM 1.1 mg/dL (1.6-2.3); POTASSIUM 3.9 mmol/L (3.4-5.0); TOTAL PROTEIN 6.1 gm/dL (6.4-8.2)
[2018-01-24 07:07] LABS: INR 1.4 (0.8-3.0); PROTHROMBIN TIME 15.5 SECONDS (9.7-12.8)
[2018-01-24 19:57] LABS: C-ANCA 2 U/mL (0-99)
[2018-01-25] VITALS (9 sets, daily range): BP systolic 113–155; BP diastolic 50–83; PULSE 84–112; TEMP 98.1–98.8
[2018-01-25 08:00] LABS: MEAN CELL VOLUME 80 fl (80.0-100.0); MEAN CORPUSCULAR HGB CONC 34 g/dl (33.0-37.0); MEAN PLATELET VOLUME 11.2 fl (7.4-10.4); PLATELET COUNT 205 K/mm3 (130-400); RED BLOOD COUNT 2.51 M/mm3 (4.20-5.60)
[2018-01-25 08:01] LABS: MEAN CORPUSCULAR HEMOGLOBIN 27 pg (27.0-31.0)
[2018-01-25 08:03] LABS: HEMOGLOBIN 6.8 g/dl (13.5-18.0)
[2018-01-25 08:09] LABS: INR 1.5 (0.8-3.0)
[2018-01-25 08:13] LABS: CALCIUM 9.2 mg/dL (8.4-10.2); CREATININE, serum 0.74 mg/dL (0.66-1.25); POTASSIUM 3.3 mmol/L (3.4-5.0)
[2018-01-25 08:56] LABS: BAND 1 % (0-10); EOSINOPHIL 2 % (0-4); LYMPHOCYTE 14 % (20.0-51.0); NEUTROPHILS 78 % (42.0-75.2); PLATELET ESTIMATE NORMAL (NORMAL)
[2018-01-25 08:57] LABS: ANISOCYTOSIS 3+; MICROCYTOSIS 2+; TARGET CELLS 3+
[2018-01-25 08:58] LABS: HYPOCHROMIA 1+; TEAR DROP CELLS 1+
[2018-01-25 09:52] LABS: HIV 1/2 Antibodies Non-Reactive; HIV-1p24 Antigen Non-Reactive
[2018-01-25 11:22] LABS: ARTERIAL BLD GAS O2 SATURATION 94.4 % (92-100); ARTERIAL BLD GAS TCO2 CT 23.3; ARTERIAL BLOOD GAS BASE EXCESS -1.6 (-2-2); ARTERIAL BLOOD GAS HCO3 22.3 meq/L (22-26); ARTERIAL BLOOD GAS PCO2 33.3 mmHg (35-45); ARTERIAL BLOOD GAS PO2 80.1 mmHg (80-100); ARTERIAL BLOOD GAS pH 7.44 (7.35-7.45)
[2018-01-25 22:52] LABS: HEMATOCRIT 26.5 % (42.0-52.0); HEMOGLOBIN 8.8 g/dl (13.5-18.0)
[2018-01-26 00:07] VITALS: BP 126/60; PULSE 87; TEMP 98.6
[2018-01-26 00:26] LABS: ANA SCREEN with REFLEX Positive (Negative)
[2018-01-26 00:56] LABS: HEPATITIS B SURFACE ANTIBODY <2.0 (()); HEPATITIS B SURFACE ANTIGEN Negative (Negative); HEPATITIS C VIRUS ANTIBODY Negative (Negative)
[2018-01-26 02:11] LABS: RPR (VDRL) Negative (Negative)
[2018-01-26 03:52] VITALS: BP 127/65; PULSE 88; TEMP 99.3
[2018-01-26 06:31] LABS: INR 1.5 (0.8-3.0); PROTHROMBIN TIME 16.5 SECONDS (9.7-12.8)
[2018-01-26 06:44] LABS: BASO % 0.4 % (0.0-2.0); EOS # 0.3 (0.0-0.7); EOS % 2.7 % (0-4.0); GRAN # 7.5 (1.4-6.5); GRAN % 70.7 % (42.2-75.2); LYMPH # 1.7 (1.2-3.4); LYMPH % 15.8 % (20.0-51.0); MEAN CELL VOLUME 80 fl (80.0-100.0); MEAN CORPUSCULAR HGB CONC 34 g/dl (33.0-37.0); MONO # 1.1 (0.1-0.6); MONO % 9.9 % (1.7-9.3); PLATELET COUNT 247 K/mm3 (130-400); RED BLOOD COUNT 3.12 M/mm3 (4.20-5.60); REDCELL DISTRIBUTION WIDTH-CV 20.6 % (11.5-14.5)
[2018-01-26 06:52] LABS: ALBUMIN 3.5 gm/dL (3.5-5.0); BILIRUBIN,TOTAL 2.1 mg/dL (0.0-1.0); CALCIUM 9.3 mg/dL (8.4-10.2); CREATININE, serum 0.58 mg/dL (0.66-1.25); POTASSIUM 3.7 mmol/L (3.4-5.0); TOTAL PROTEIN 6.7 gm/dL (6.4-8.2)
[2018-01-26 06:55] LABS: HEMOGLOBIN 8.4 g/dl (13.5-18.0); MEAN CORPUSCULAR HEMOGLOBIN 27 pg (27.0-31.0)
[2018-01-26 08:33] VITALS: BP 138/67; PULSE 100; TEMP 98.4
[2018-01-26] MEDS ORDERED: FLOMAX 0.40.4 MG/CAP PO (10:59)
[2018-01-26] MEDS ORDERED: PROTONIX 40MG T40 MG PO (10:59)
[2018-01-26] MEDS ORDERED: THIAMINE 1100 MG/TAB PO (11:00)
[2018-01-26] MEDS ORDERED: MAG-OX 400400 MG/TAB PO (11:00)
[2018-01-26 12:22] VITALS: BP 143/77; PULSE 96; TEMP 98.5
== END 2018-01-26 18:59 | disposition home or self-care (01) | DRG 812 ==
LOC: COL.ER 16:44 → MEDICAL 19:00
PROVIDERS: Emergency Medicine; Hospitalist; Internal Medicine; Internal Medicine Critical Care Medicine; Internal Medicine Nephrology; Nurse Practitioner Family; Physician Assistant; Urology
PROC: 0TJB8ZZ Inspection of Bladder, Via Natural or Artificial Opening Endoscopic (ICD-10-PCS; principal; 2018-01-22 12:45)
PROC: 0DJ08ZZ Inspection of Upper Intestinal Tract, Via Natural or Artificial Opening Endoscopic (ICD-10-PCS; 2018-01-24)
DX: D50.0 Iron deficiency anemia secondary to blood loss (chronic) (principal); I42.9 Cardiomyopathy, unspecified; R04.2 Hemoptysis; N17.9 Acute kidney failure, unspecified; R18.8 Other ascites; R31.0 Gross hematuria; R50.9 Fever, unspecified; I10 Essential (primary) hypertension; E11.9 Type 2 diabetes mellitus without complications; K21.0 Gastro-esophageal reflux disease with esophagitis; K57.90 Diverticulosis of intestine, part unspecified, without perforation or abscess without bleeding; K44.9 Diaphragmatic hernia without obstruction or gangrene; E78.5 Hyperlipidemia, unspecified; D58.2 Other hemoglobinopathies; F10.20 Alcohol dependence, uncomplicated; E83.42 Hypomagnesemia; E87.6 Hypokalemia
CPT/HCPCS: 99222; 99223-AI; 99232-AI; 99233-AI; 99239; A4216; A9539; A9540; C9113; G0103; J0692; J0696; J1450; J2704; J3475; J7030; J7050; P9016

== ENCOUNTER → 2018-03-08 | Outpatient (CLI) | payer OTHER ==
[~2018-03-08] MED LIST changes: +00186-0372-20 IH; +ATARAX50 MG PO; +D3-5050000 IU PO; +FERROUSAL325 MG PO; +FLOMAX 0.40.4 MG/CAP PO; +FOLIC ACID 11 MG/TA1 PO; +HCTZ 25MG TAB25 MG PO; +MAG-OX 400400 MG/TAB PO; +NEURONTIN300 MG/CAP PO; +THIAMINE 1100 MG/TAB PO; +VIAGRA100 M1; +VITAMIN D 1001000 IU PO; +ZOCOR 40MG40 MG PO
== END ==
LOC: BHSO 10:18
DX: F43.10 Post-traumatic stress disorder, unspecified (principal)
CPT/HCPCS: G0463

== ENCOUNTER → 2018-06-07 | Outpatient (CLI) | payer OTHER | LOC: BHSO 13:19 | DX: F43.10 Post-traumatic stress disorder, unspecified (principal) | CPT/HCPCS: G0463 ==

== ENCOUNTER → 2018-07-14 | Outpatient (CLI) | payer OTHER | LOC: BHSO 14:14 | DX: F43.10 Post-traumatic stress disorder, unspecified (principal) | CPT/HCPCS: G0463 ==

== ENCOUNTER → 2018-08-14 | Outpatient (CLI) | payer OTHER | LOC: BHSO 13:15 | DX: F43.10 Post-traumatic stress disorder, unspecified (principal) | CPT/HCPCS: G0463 ==

== ENCOUNTER 2018-11-09 14:50 | Emergency (ER) | payer OTHER ==
[~2018-11-09] VITALS: Ht 177.8 cm; Wt 114.0 kg
[~2018-11-09 14:50] MED LIST changes: +00186-0370-20 IH; -00186-0372-20 IH
[2018-11-09 15:01] VITALS: BP 111/55
[2018-11-09 15:04] VITALS: PULSE 0
[2018-11-09 15:14] LABS: BASO % 0.2 % (0.0-2.0); EOS % 0.3 % (0-4.0); GRAN # 5.4 (1.4-6.5); GRAN % 60.4 % (42.2-75.2); LYMPH # 2.1 (1.2-3.4); LYMPH % 23.7 % (20.0-51.0); MEAN CELL VOLUME 93 fl (80.0-100.0); MEAN CORPUSCULAR HGB CONC 28 g/dl (33.0-37.0); MONO % 10.8 % (1.7-9.3); PLATELET COUNT 53 K/mm3 (130-400); RED BLOOD COUNT 2.36 M/mm3 (4.20-5.60); REDCELL DISTRIBUTION WIDTH-CV 19.9 % (11.5-14.5)
[2018-11-09 15:16] LABS: HEMOGLOBIN 6.1 g/dl (13.5-18.0); MEAN CORPUSCULAR HEMOGLOBIN 26 pg (27.0-31.0)
[2018-11-09 15:17] LABS: HEMATOCRIT 21.9 % (42.0-52.0)
[2018-11-09 15:21] LABS: ALBUMIN 3.6 gm/dL (3.5-5.0); BILIRUBIN,TOTAL 7.7 mg/dL (0.0-1.0); CALCIUM 8.5 mg/dL (8.4-10.2); CREATININE, serum 2.1 (0.66-1.25)
[2018-11-09 15:23] LABS: POTASSIUM 9.6 mmol/L (3.4-5.0)
[2018-11-09 15:32] LABS: TROPONIN-I 0.028 ng/mL (0.000-0.035)
[2018-11-09] MEDS ORDERED: LIPITOR 80MG80 MG PO (15:35)
[2018-11-09] MEDS ORDERED: DESYREL 50MG50 MG PO (15:36)
[2018-11-09] MEDS ORDERED: IMDUR 30MG30 MG/TAB PO (15:37)
[2018-11-09] MEDS ORDERED: PROZAC 20MG20 MG PO (15:38)
[2018-11-09] MEDS ORDERED: MOBIC15 MG PO (15:39)
[2018-11-09] MEDS ORDERED: PROAIR HFA0.09 MG/AC IH (15:40)
[2018-11-09] MEDS ORDERED: UNABLE TO OBTAIN (16:14)
--- NOTE | 2018-11-09 16:28 | NUR ---
[employer] student responded to a code blue in the ED. The patient's daughter Huma Hughes presented to the ED. ED physician and enginehouse brakeman met with the daughter and reported that the patient was found in the home unresponsive and still was unresponive after multiple rounds of CPR. The patient's daughter and physician were in agreeance to withdraw care and was called at 1504. water treatment plant supervisor notifed [employer] [employer]. The patient's daughters and other family members chose [facility] in [place], [place] . W[employer] DESIGN[employer] student notified enginehouse brakeman.
--- NOTE | 2018-11-09 19:00 | NUR ---
[employer] called with permission to release the body to [facility]. TYREL Yost notified.
== END 2018-11-09 19:15 | disposition expired ==
LOC: COL.ER 14:50
PROVIDERS: Emergency Medicine
DX: I46.9 Cardiac arrest, cause unspecified (principal); E11.9 Type 2 diabetes mellitus without complications; I11.0 Hypertensive heart disease with heart failure; I50.9 Heart failure, unspecified; I25.10 Atherosclerotic heart disease of native coronary artery without angina pectoris; E78.5 Hyperlipidemia, unspecified; I42.9 Cardiomyopathy, unspecified
CPT/HCPCS: J0330; J2250